=== PATIENT | male | born 1990 | race Caucasian/White ===

== ENCOUNTER 2018-06-05 00:45 | Emergency (ER) | payer OTHER ==
--- NOTE | 2018-06-05 00:56 | PDOC ---
History of Present Illness - General Chief Complaint: Shortness of Breath Stated Complaint: THROAT FEELS FUNNY Time Seen by Provider: 06/05/18 00:49 History Source: Patient Exam Limitations: No Limitations - History of Present Illness Initial Comments: 27 yo M no significant PMH presents with sensation that his throat is closing at nighttime for the past few days. +Nasal congestion and dry cough. Worse when he lies flat at night. Clears in the morning, but then tends to worsen during the day. He indicates the sternal notch as the location of the sensation. No difficulty swallowing, no fever, no cp. No difficulty breathing. Past History - Past Medical History Allergies/Adverse Reactions: Allergies Allergy/AdvReac Type Severity Reaction Status Date / Time No Known Allergies Allergy Unverified 06/05/18 00:47 Home Medications: Ambulatory Orders Fluticasone Prop 0.05% Nasal [Flonase -] 1 - 2 spray NS DAILY #1 spray.pump 05/23 Review of Systems - Review of Systems Able to Perform ROS?: Yes Comments:: GENERAL/CONSTITUTIONAL: No fever or chills. No weakness. HEAD, EYES, EARS, NOSE AND THROAT: No change in vision. No ear pain or discharge. +Irritation and sensation of blockage in throat. CARDIOVASCULAR: No chest pain or shortness of breath. RESPIRATORY: No cough, wheezing, or hemoptysis. GASTROINTESTINAL: No nausea, vomiting, diarrhea or constipation. GENITOURINARY: No dysuria, frequency, or change in urination. MUSCULOSKELETAL: No joint or muscle swelling or pain. No neck or back pain. SKIN: No rash. NEUROLOGIC: No headache, vertigo, loss of consciousness, or change in strength/ sensation. ENDOCRINE: No increased thirst. No abnormal weight change. HEMATOLOGIC/LYMPHATIC: No anemia, easy bleeding, or history of blood clots. ALLERGIC/IMMUNOLOGIC: No hives or skin allergy. *Physical Exam - Physical Exam Comments: GENERAL: Awake, alert, and fully oriented, in no acute distress HEAD: No signs of trauma EYES: PERRLA, EOMI, sclera anicteric, conjunctiva clear ENT: Auricles normal inspection, hearing grossly normal, nares patent. +Boggy turbinates B/L with clear secretions. Oropharynx clear without exudates. Moist mucosa NECK: Normal ROM, supple, no lymphadenopathy, JVD, or masses LUNGS: Breath sounds equal, clear to auscultation bilaterally. No wheezes, and no crackles HEART: Regular rate and rhythm, normal S1 and S2, no murmurs, rubs or gallops ABDOMEN: Soft, nontender, normoactive bowel sounds. No guarding, no rebound. No masses EXTREMITIES: Normal range of motion, no edema. No clubbing or cyanosis. No cords, erythema, or tenderness NEUROLOGICAL: Cranial nerves II through XII grossly intact. Normal speech, normal gait. Motor and sensation intact SKIN: Warm, Dry, normal turgor, no rashes or lesions noted. Medical Decision Making - Medical Decision Making 06/05/18 01:03 Symptoms likely due to post-nasal drip with irritation of the oropharynx as a result. There are no signs of infection and no signs of airway obstruction. Will DC home if XR wnl. *DC/Admit/Observation/Transfer Diagnosis at time of Disposition: Post-nasal drip - Discharge Dispostion Disposition: HOME Condition at time of disposition: Stable Decision to Admit order: No - Prescriptions Prescriptions: Fluticasone Prop 0.05% Nasal [Flonase -] 1 - 2 spray NS DAILY #1 spray.pump - Referrals - Patient Instructions Printed Discharge Instructions: DI for Allergic Rhinitis, DI for Nasal Congestion - Post Discharge Activity
[2018-06-05 01:02] VITALS: BP 161/94; PULSE 90; TEMP 98.1; BMI 26.3
== END 2018-06-05 01:33 | disposition home or self-care (01) ==
LOC: FER 00:45
DX: R09.82 Postnasal drip (principal)
CPT/HCPCS: 70360-TC-FY; 99282-25